=== PATIENT | male | born 1995 | race Caucasian/White ===

== ENCOUNTER → 2016-12-26 | Outpatient (CLI) | payer BC ==
[2016-12-26 12:41] LABS: HEMOGLOBIN 15.7 g/dL (14.1-18.0); LYMPH # 1.4 K/mm3 (0.7-4.5); LYMPH % 22.4 % (10-50)
[2016-12-26 17:28] LABS: BUN 12 mg/dL (7-18)
[2016-12-26 17:31] LABS: GFR (ESTIMATED) 106 ML/MIN (>60)
[2016-12-28 09:39] LABS: Vitamin D, 25-Hydroxy 35.7 ng/mL (30.0-100.0)
== END ==
LOC: LAB 11:41 → RT 11:41
PROVIDERS: Nurse Practitioner Family
DX: R01.1 Cardiac murmur, unspecified (principal); R00.2 Palpitations; R53.83 Other fatigue; R42 Dizziness and giddiness

== ENCOUNTER → 2016-12-28 | Outpatient (CLI) | payer BC ==
--- NOTE | 2016-12-28 20:54 | RADIOLOGY REPORT PS360 ---
PROCEDURE: 2-D M-mode and color Doppler study INDICATIONS FOR THE TEST: Chest pain COPD Heart Murmur Tobacco Smoking PalpitationsX Fatigue Syncope Edema Hypertension Diabetes Mellitus Rheumatic Fever SOB BAI Obesity Hyperlipidemia Family History HD Additional History MURMUR, BUBBLE STUDY PATIENT INFORMATION HEIGHT: 69 WEIGHT:126 GENDER: Male B/P:120/70 2-D/M-MODE INTERPRETATION: 2-D MEASUREMENTS OBSERVED VALUES IN CMS Right Ventricular Dimension (RVDd) 1.2 Interventricular Septum (Thickness)(IVsd) 1.0 Left Ventricular Internal Dimensions(LVIDd) 4.2 Left Ventricular Posterior Wall (Thickness)(LVPWd) .8 Aortic Root 3.5 Aortic Cusp Separation 2.2 Left Atrial Dimensions (LAD) 2.7 2D 1. Left atrium is normal size, left ventricle is normal size, there is no concentric left ventricular hypertrophy, visually estimated ejection fraction of 55% with no obvious regional wall motion abnormality. 2. The right atrium and right ventricle are normal size and contractility. 3. The aortic, mitral and tricuspid valve is structurally normal. 4. The pulmonic valve is poorly visualized. 5. No significant pericardial effusion noted. DOPPLER INTERROGATION: Doppler interrogation of the aortic, mitral and tricuspid valvular presence of trace mitral and tricuspid regurgitation of no hemodynamic significance, agitated saline contrast study fails to identify intracardiac shunt, diastolic parameters are within normal range. CONCLUSION: 1. Normal left ventricular size, preserved left ventricular systolic function, visually estimated ejection fraction of 55% with no obvious regional wall motion abnormality, diastolic parameters are within normal range. 2. Trace mitral and tricuspid regurgitation, agitated saline contrast study fails to identify intracardiac shunt. 3. No significant pericardial effusion noted.
== END ==
LOC: RT 13:45
DX: R01.1 Cardiac murmur, unspecified (principal); R00.2 Palpitations

== ENCOUNTER → 2017-01-12 | Outpatient (CLI) | payer BC ==
[2017-01-12 07:49] LABS: FASTING URINE GLUCOSE NEGATIVE
[2017-01-12 09:00] LABS: 1 HR URINE GLUCOSE NEGATIVE mg/ml
[2017-01-12 10:25] LABS: 2 HR URINE GLUCOSE NEGATIVE mg/ml
[2017-01-12 12:10] LABS: 3 HR URINE GLUCOSE NEGATIVE mg/ml
[2017-01-12 12:14] LABS: 4 HR GLUCOSE 91 mg/dL
[2017-01-12 12:17] LABS: 4 HR URINE GLUCOSE NEGATIVE
[2017-01-13 14:40] LABS: Insulin 8.3 uIU/mL (2.6-24.9)
[2017-01-13 16:37] LABS: C-Peptide 1.7 ng/mL (1.1-4.4)
== END ==
LOC: LAB 07:15
PROVIDERS: Nurse Practitioner Family
DX: E16.2 Hypoglycemia, unspecified (principal)